=== PATIENT | female | born 1960 | race Caucasian/White ===

== ENCOUNTER 2018-12-04 22:25 | Emergency (ER) | payer SELFPAY ==
--- OUTSIDE RECORDS SUMMARY | 2018-12-04 22:27 | XMS REPORT ---
:1960 Author Organization eClinicalWorks Care Team Providers Name Role Phone Kamilah Mendenhall Provider Role Unavailable Allergies, Adverse Reactions, Alerts Substance Reaction Event Type N.K.D.A. Info Not Available Non Drug Allergy Problems Problem Type Condition Code Onset Dates Condition Status Problem Hyperlipidemia, unspecified E78.5 Active hyperlipidemia type Problem Osteopenia M85.80 Active Problem Overweight (BMI 25.0-29.9) E66.3 Active Problem Pain of left hand M79.642 Active Assessment Overactive bladder N32.81 Active Problem Elevated BP without diagnosis of R03.0 Active hypertension Assessment Insomnia, unspecified type G47.00 Active Assessment Pain of left hand M79.642 Active Problem Pain in right hand M79.641 Active Problem Overactive bladder N32.81 Active Problem Postherpetic neuralgia B02.29 Active Problem Depression screening Z13.31 Active Problem Insomnia, unspecified type G47.00 Active Assessment Gastroesophageal reflux disease K21.9 Active without esophagitis Assessment Elevated BP without diagnosis of R03.0 Active hypertension Assessment Dietary surveillance and counseling Z71.3 Active Assessment Overweight (BMI 25.0-29.9) E66.3 Active Assessment Hyperlipidemia, unspecified E78.5 Active hyperlipidemia type Assessment Screening mammogram, encounter for Z12.31 Active Problem Dietary surveillance and counseling Z71.3 Active Assessment Pain in right hand M79.641 Active Assessment Depression screening Z13.31 Active Problem Gastroesophageal reflux disease K21.9 Active without esophagitis Medications Medication Code Code Instructions Start End Status Dosage System Date Date Gabapentin NDC 30830719742 300 MG Orally May 10, Active 1 capsule Twice a day; 2018 start off in evening then titrate up as tolerates to twice daily Omeprazole NDC 60092274592 20 MG Orally Nov 23, Active 1 capsule Once a day for 2019 acid reflux Oxybutynin ND 20269689267 10 MG Orally Nov Inactive 1 tablet Chloride ER Once a day 2018 Meloxicam ND 96980963931 15 MG Orally May Active 1 tablet Once a day 19, as needed 2019 for pain; take with food or milk Dexilant [facility] 80904862762 60 MG Orally Active 1 capsule Once a day Vytorin [facility] 14397933646 10-20 MG Orally Active 1 tablet Once a day in evening Co Q 10 [facility] 09249344975 100 MG Orally Active 1 capsule Once a day with a meal Amitriptyline [facility] 19721531061 25 MG Orally Nov 23, Active 1 tablet HCl Once a day 2018 at bedtime as needed for insomnia Mirtazapine [facility] 54252572248 15 MG Orally Inactive 1 tablet Once a day at bedtime as needed for sleep Detrol [facility] 30671341459 2 MG Orally Nov 23Mar Active 1 tablet Twice a day for 2018, bladder 2019 Multivitamin [facility] 62018752901 - Orally Active as Adult directed Vytorin [facility] 41769066709 10-20 MG Orally Active 1 tablet Once a day in evening Results No Known Results Summary Purpose eClinicalWorks Submission
--- OUTSIDE RECORDS SUMMARY | 2018-12-04 22:27 | XMS REPORT ---
:1960 Author Organization eClinicalWorks Care Team Providers Name Role Phone Kamilah Mendenhall Provider Role Unavailable Allergies No Known Allergies Problems Problem Type Condition Code Onset Dates Condition Status Problem Hyperlipidemia, unspecified E78.5 Active hyperlipidemia type Problem Osteopenia M85.80 Active Problem Overweight (BMI 25.0-29.9) E66.3 Active Problem Dietary surveillance and counseling Z71.3 Active Problem Gastroesophageal reflux disease K21.9 Active without esophagitis Problem Pain of left hand M79.642 Active Problem Elevated BP without diagnosis of R03.0 Active hypertension Problem Pain in right hand M79.641 Active Problem Overactive bladder N32.81 Active Problem Postherpetic neuralgia B02.29 Active Problem Depression screening Z13.31 Active Problem Insomnia, unspecified type G47.00 Active Medications No Known Medications Results No Known Results Summary Purpose eClinicalWorks Submission
[2018-12-04] MEDS ORDERED: FENTANYL CITR 100 MCG/2 ML ONE (22:48)
[2018-12-04] MEDS ORDERED: ONDANSETRON 4 MG/2 ML VIAL ONE (22:48)
--- NOTE | 2018-12-04 23:44 | ER ---
Nurse's Notes [facility] Name: Sulma Petty Age: 58 yrs Sex: Female : 1960 Arrival Date: 12/04/2018 Time: 22:27 Bed 2 Private MD: Diagnosis: 2-part fracture of surgical neck of humerus Presentation: 12/04 22:36 Presenting complaint: Patient states: left upper arm pain s/p slip and fall on tile ak1 floor. pt stated she has had "a lot" of alcohol tonight. Transition of care: patient was not received from another setting of care. Onset of symptoms was December 04, 2018. Risk Assessment: Do you want to hurt yourself or someone else? Patient reports no desire to harm self or others. Initial Sepsis Screen: Does the patient meet any 2 criteria? No. Patient's initial sepsis screen is negative. Does the patient have a suspected source of infection? No. Patient's initial sepsis screen is negative. Care prior to arrival: None. 22:36 Method Of Arrival: Ambulatory ak1 22:36 Acuity: JEANETTE 3 ak1 Triage Assessment: 22:38 General: Appears uncomfortable, Behavior is anxious, crying. Pain: Complains of pain in ak1 left bicep. Historical: - Allergies: 22:38 No Known Allergies; ak1 - Home Meds: 22:38 meloxicam oral oral [Active]; ak1 - PMHx: 22:38 High Cholesterol; Reflux; ak1 - PSHx: 22:38 Hysterectomy; ak1 - Immunization history:: Adult Immunizations unknown, Flu vaccine is not up to date. - Social history:: Smoking status: Patient/guardian denies using tobacco. - Ebola Screening: : No symptoms or risks identified at this time. Screenin:43 Abuse screen: Denies threats or abuse. Denies injuries from another. Nutritional lp1 screening: No deficits noted. Tuberculosis screening: No symptoms or risk factors identified. Fall Risk None identified. Assessment: 22:36 General: Appears uncomfortable, Behavior is crying, Smells of alcohol. Pain: Complains lp1 of pain in left tricep Pain currently is 10 out of 10 on a pain scale. Aggravated by repositioning, Noted to be crying, restless. Neuro: Level of Consciousness is awake, alert, obeys commands, Oriented to person, place, situation. Cardiovascular: Patient's skin is warm and dry. Respiratory: Respiratory effort is even, unlabored. GI: No deficits noted. : No deficits noted. EENT: No deficits noted. Derm: Skin is pink, warm \\T\\ dry. Musculoskeletal: Circulation, motion, and sensation intact. Range of motion: limited in left shoulder Reports pain in left shoulder, left upper arm. 23:42 Reassessment: Sling in place to left arm; radial pulse palpable in left wrist; Patient lp1 complaint of continued pain to left arm; Educated on keeping left arm immobilized for comfort, patient noted to be moving left arm while in sling. 12/05 00:00 Reassessment: Dr. Rogel at bedside to discuss care with patient and ; Verbal lp1 order to administer Parma 7.5-325mg PO. Vital Signs: 12/04 22:35 BP 136 / 101; Pulse 75; Resp 18; Temp 97.6; Pulse Ox 98% on R/A; Weight 81.65 kg (R); ak1 Height 5 ft. 5 in. (165.10 cm) (R); Pain 10/10; 23:42 BP 115 / 70; Pulse 76; Resp 18; Pulse Ox 97% on R/A; Pain 9/10; lp1 22:35 Body Mass Index 29.95 (81.65 kg, 165.10 cm) ak1 ED Course: 22:27 Patient arrived in ED. ds1 22:35 Arm band placed on Patient placed in an exam room, on a stretcher, on pulse oximetry, ak1 Patient notified of wait time. 22:36 Sherri Clark, KRISTI is Primary Nurse. lp1 22:37 Triage completed. ak1 22:38 Ezra Rogel MD is Attending Physician. tw4 22:43 Patient has correct armband on for positive identification. Placed in gown. lp1 22:49 Inserted saline lock: 20 gauge in right antecubital area, using aseptic technique. ag4 23:08 Humerus Left XRAY In Process Unspecified. EDMS 23:18 Sling applied to left arm. lp1 23:42 No provider procedures requiring assistance completed. IV discontinued, No lp1 redness/swelling at site. Pressure dressing applied. 23:44 Roberto Srivastava MD is Referral Physician. tw4 Administered Medications: 22:50 Drug: fentaNYL (PF) 50 mcg Route: IVP; Site: right antecubital; lp1 12/05 00:03 Follow up: Response: No change in condition; Pain is unchanged, physician notified lp1 12/04 22:50 Drug: Zofran 4 mg Route: IVP; Site: right antecubital; lp1 12/05 00:04 Follow up: Response: No adverse reaction lp1 00:03 Drug: Parma (7.5 mg-325 mg) 1 tabs {Note: RASS 1.} Route: PO; lp1 00:04 Follow up: Response: Medication administered at discharge. lp1 Outcome: 12/04 23:43 Discharge ordered by . tw4 12/05 00:05 Discharged to home ambulatory, with significant other. lp1 Condition: good Discharge instructions given to patient, significant other, Instructed on discharge instructions, follow up and referral plans. medication usage, Demonstrated understanding of instructions, follow-up care, medications, splint care, Prescriptions given X 2. 00:05 Patient left the ED. lp1 Signatures: Dispatcher [employer] [facility] Freitas[employer]ana fernando ds1 Sherri Clark RN RN lp1 Nisa Zimmerman RN RN ak1 Ezra Rogel MD MD tw4 Neri Jones 4
--- NOTE | 2018-12-04 23:45 | EDPHYS ---
Physician Documentation [facility] Name: Sulma Petty Age: 58 yrs Sex: Female : 1960 Arrival Date: 12/04/2018 Time: 22:27 Bed 2 Private MD: ED Physician Ezra Rogel HPI: 12/04 23:35 This 58 yrs old Female presents to ER via Ambulatory with complaints of Arm tw4 Injury. 23:35 The patient or guardian complains of injury. The patient or guardian complains of tw4 swelling, tenderness. The complaints affect the left bicep and left tricep. Context: The problem was sustained at home, resulted from a fall, the patient slipped. Onset: The symptoms/episode began/occurred just prior to arrival. Treatment prior to arrival includes: no previous treatment. Modifying factors: The symptoms are alleviated by nothing. the symptoms are aggravated by nothing. Severity of symptoms: At their worst the symptoms were moderate, in the emergency department the symptoms are unchanged. The patient has not experienced similar symptoms in the past. Historical: - Allergies: 22:38 No Known Allergies; ak1 - Home Meds: 22:38 meloxicam oral oral [Active]; ak1 - PMHx: 22:38 High Cholesterol; Reflux; ak1 - PSHx: 22:38 Hysterectomy; ak1 - Immunization history:: Adult Immunizations unknown, Flu vaccine is not up to date. - Social history:: Smoking status: Patient/guardian denies using tobacco. - Ebola Screening: : No symptoms or risks identified at this time. ROS: 23:35 Constitutional: Negative for fever, chills, and weight loss, Eyes: Negative for injury, tw4 pain, redness, and discharge, Cardiovascular: Negative for chest pain, palpitations, and edema, Respiratory: Negative for shortness of breath, cough, wheezing, and pleuritic chest pain, Abdomen/GI: Negative for abdominal pain, nausea, vomiting, diarrhea, and constipation, Back: Negative for injury and pain, Skin: Negative for injury, rash, and discoloration, Neuro: Negative for headache, weakness, numbness, tingling, and seizure. 23:35 MS/extremity: Positive for injury or acute deformity, pain, swelling, tenderness. Exam: 23:35 Constitutional: This is a well developed, well nourished patient who is awake, alert, tw4 and in no acute distress. Head/Face: Normocephalic, atraumatic. Chest/axilla: Normal chest wall appearance and motion. Nontender with no deformity. No lesions are appreciated. Cardiovascular: Regular rate and rhythm with a normal S1 and S2. No gallops, murmurs, or rubs. Normal PMI, no JVD. No pulse deficits. Respiratory: Lungs have equal breath sounds bilaterally, clear to auscultation and percussion. No rales, rhonchi or wheezes noted. No increased work of breathing, no retractions or nasal flaring. Abdomen/GI: Soft, non-tender, with normal bowel sounds. No distension or tympany. No guarding or rebound. No evidence of tenderness throughout. Back: No spinal tenderness. No costovertebral tenderness. Full range of motion. Neuro: Awake and alert, GCS 15, oriented to person, place, time, and situation. Cranial nerves II-XII grossly intact. Motor strength 5/5 in all extremities. Sensory grossly intact. Cerebellar exam normal. Normal gait. 23:35 Musculoskeletal/extremity: Extremities: noted in the left bicep and left tricep: ROM: limited active range of motion due to pain, limited passive range of motion due to pain, Circulation is intact in all extremities. Pulses: noted to be 3+ in the left radial artery and left brachial artery, Sensation intact. Severe pain noted. Compartment Syndrome exam of affected extremity: is normal. Vital Signs: 22:35 BP 136 / 101; Pulse 75; Resp 18; Temp 97.6; Pulse Ox 98% on R/A; Weight 81.65 kg (R); ak1 Height 5 ft. 5 in. (165.10 cm) (R); Pain 10/10; 23:42 BP 115 / 70; Pulse 76; Resp 18; Pulse Ox 97% on R/A; Pain 9/10; lp1 22:35 Body Mass Index 29.95 (81.65 kg, 165.10 cm) ak1 Procedures: 23:35 Splinting: Splint applied to left bicep, dorsal aspect of left forearm, left tricep and tw4 palmar aspect of left forearm using sling, applied by nurse. MDM: 22:38 Patient medically screened. tw4 23:35 Differential diagnosis: open fracture, closed fracture, contusion. Data reviewed: vital tw4 signs, nurses notes. Test interpretation: by ED physician or midlevel provider: plain radiologic studies. Counseling: I had a detailed discussion with the patient and/or guardian regarding: the historical points, exam findings, and any diagnostic results supporting the discharge/admit diagnosis, radiology results. Medication response: fentanyl . Response to treatment: the patient's symptoms have markedly improved after treatment, and as a result, I will discharge patient, administer pain medication. Special discussion: I discussed with the patient/guardian in detail that at this point there is no indication for admission to the hospital. It is understood, however, that if the symptoms persist or worsen the patient needs to return immediately for re-evaluation. 12/04 22:44 Order name: Humerus Left XRAY tw4 12/04 23:18 Order name: Sling; Complete Time: 23:18 lp1 Administered Medications: 22:50 Drug: fentaNYL (PF) 50 mcg Route: IVP; Site: right antecubital; lp1 12/05 00:03 Follow up: Response: No change in condition; Pain is unchanged, physician notified lp1 12/04 22:50 Drug: Zofran 4 mg Route: IVP; Site: right antecubital; lp1 12/05 00:04 Follow up: Response: No adverse reaction lp1 00:03 Drug: B[place] (7.5 mg-325 mg) 1 tabs {Note: RASS 1.} Route: PO; lp1 00:04 Follow up: Response: Medication administered at discharge. lp1 Disposition: 12/04/18 23:43 Discharged to Home. Impression: 2-part fracture of surgical neck of humerus. - Condition is Stable. - Discharge Instructions: Humerus Fracture Treated With Immobilization, [id number]. - Prescriptions for Ibuprofen 800 mg Oral Tablet - take 1 tablet by ORAL route every 12 hours As needed take with food; 20 tablet. Tylenol- Codeine #3 300-30 mg Oral Tablet - take 2 tablet by ORAL route every 6 hours As needed; 6 tablet. - Medication Reconciliation Form, Thank You Letter, Antibiotic Education, Prescription Opioid Use form. - Follow up: Private Physician; When: Upon discharge from the Emergency Department; Reason: If symptoms return, Recheck today's complaints, Continuance of care. Follow up: Roberto Srivastava MD; When: Upon discharge from the Emergency Department; Reason: If symptoms return, Recheck today's complaints, Continuance of care. - Problem is new. - Symptoms have improved. Signatures: Dispatcher [employer] EDMS Sherri Clark, RN RN lp1 Nisa Zimmerman RN RN ak1 Ezra Rogel MD MD tw4 Corrections: (The following items were deleted from the chart) 12/04 23:44 23:43 12/04/2018 23:43 Discharged to Home. Impression: 2-part fracture of surgical neck tw4 of humerus. Condition is Stable. Forms are Medication Reconciliation Form, Thank You Letter, Antibiotic Education, Prescription Opioid Use. Follow up: Private Physician; When: Upon discharge from the Emergency Department; Reason: If symptoms return, Recheck today's complaints, Continuance of care. Problem is new. Symptoms have improved. tw4 12/05 00:05 12/04 23:44 12/04/2018 23:43 Discharged to Home. Impression: 2-part fracture of lp1 surgical neck of humerus. Condition is Stable. Discharge Instructions: Humerus Fracture Treated With Immobilization, [id number]. Prescriptions for Ibuprofen 800 mg Oral Tablet - take 1 tablet by ORAL route every 12 hours As needed take with food; 20 tablet, Tylenol-Codeine #3 300-30 mg Oral Tablet - take 2 tablet by ORAL route every 6 hours As needed; 6 tablet. and Forms are Medication Reconciliation Form, Thank You Letter, Antibiotic Education, Prescription Opioid Use. Follow up: Private Physician; When: Upon discharge from the Emergency Department; Reason: If symptoms return, Recheck today's complaints, Continuance of care. Follow up: Roberto Srivastava; When: Upon discharge from the Emergency Department; Reason: If symptoms return, Recheck today's complaints, Continuance of care. Problem is new. Symptoms have improved. tw4
[2018-12-05] MEDS ORDERED: HYDROCODONE/APAP 7.5/325 MG TAB ONE (00:01)
--- NOTE | 2018-12-05 06:30 | RAD REPORT ---
EXAM DESCRIPTION: RAD - Humerus Left - 12/04/2018 11:07 pm CLINICAL HISTORY: Fall, arm pain COMPARISON: None. FINDINGS: A spiral fracture is present in the midshaft left humerus. Humerus is fractured into 3 alejandra n fragments. Small fracture fragments are seen proximally. No angulation deformity seen. There is 5 m m distraction along the distal margin of the fracture. No foreign body or other soft tissue abnormali ty. No elbow joint or shoulder joint abnormality seen. IMPRESSION: Spiral fracture midshaft left humerus as detailed.
== END 2018-12-05 00:05 | disposition home or self-care (01) ==
LOC: ER 22:25
PROC: 2W3DX1Z Immobilization of Left Lower Arm using Splint (ICD-10-PCS; principal; 2018-12-05)
DX: S42.222A 2-part displaced fracture of surgical neck of left humerus, initial encounter for closed fracture (principal); W01.0XXA Fall on same level from slipping, tripping and stumbling without subsequent striking against object, initial encounter; Y93.9 Activity, unspecified; Y92.009 Unspecified place in unspecified non-institutional (private) residence as the place of occurrence of the external cause; E78.00 Pure hypercholesterolemia, unspecified
CPT/HCPCS: 96374; 96375; 99284; J2405; J3010